=== PATIENT | female | born 1930 | race Caucasian/White ===

== ENCOUNTER → 2016-11-27 | Outpatient (CLI) | payer OTHER | LOC: RAD 13:29 | DX: Z12.31 Encounter for screening mammogram for malignant neoplasm of breast (principal) ==

== ENCOUNTER → 2017-12-11 | Outpatient (CLI) | payer OTHER | LOC: RAD 00:27 | DX: Z12.31 Encounter for screening mammogram for malignant neoplasm of breast (principal) ==

== ENCOUNTER → 2018-12-16 | Outpatient (CLI) | payer OTHER | LOC: RAD 13:24 | DX: Z12.31 Encounter for screening mammogram for malignant neoplasm of breast (principal) ==

== ENCOUNTER → 2018-12-18 | Outpatient (CLI) | payer OTHER | LOC: RAD 10:26 | DX: N63.21 Unspecified lump in the left breast, upper outer quadrant (principal); N65.1 Disproportion of reconstructed breast; R92.2 Inconclusive mammogram ==

== ENCOUNTER → 2018-12-26 | Outpatient (CLI) | payer OTHER ==
--- NOTE | 2018-12-30 12:06 | PATH ---
[facility] [place] [address] PATHOLOGY RPT PROCEDURE Name: MARI GIL Room #: REG LANDRY Brooke.#: [id number] ������������������ Admission: 12/26/18 ������������������ Date of : 30 Discharge: Report #: [id number] Path Case #: [id number] [facility] Accession Number: [id number] . 01 Material submitted: . breast - LEFT BREAST MASS, 1:00. Modifiers: left, 1:00 . 01 Clinical history: . Left breast mass . 02 Diagnosis: Breast, left breast mass 1:00 3 cm, needle core biopsy: - INVASIVE MODERATELY DIFFERENTIATED DUCTAL ADENOCARCINOMA, LUIS FERNANDO GRADE II MEASURING 0.9 CM IN CONTIGUOUS LENGTH IN A SINGLE CORE. - EXTENSIVE DUCTAL CARCINOMA IN SITU, INTERMEDIATE NUCLEAR GRADE AND CRIBRIFORM TYPE. (IUV:aquiles; 12/29/2018) MBR/12/29/2018 . 02 Comment: Specimen type: Needle core biopsy Tumor site: Left breast mass 1:00, 3 cm from nipple Tumor quantitation: 0.9 cm Histologic type: Invasive ductal carcinoma Histologic grade: Morrow grade II Tubules, nuclei and mitoses: 3, 2 and 1 respectively LVSI: Not identified Microcalcifications: Not identified Markers: ER, [place], Ki67 and HER2/tamir Block: A3 . Fraternity Adviser slides are co-reviewed by Dr. Susan Wolff who concurs with my diagnosis. . Findings of this case are telephoned to Carmen in our breast center at 10:50 a.m. on 12/29/18. . (IUV:insurance agency owner; 12/29/2018) . 02 Electronically signed: . Tiffany Hughes MD, Pathologist NPI- [id number] . 01 Gross description: . Received in formalin labeled "Mari Gil, left breast 1:00 3 cm," are multiple needle cores of yellow-smith fibrofatty tissue measuring 3.3 x 3.4 x 0.6 cm in aggregate dimensions. The tissue [place] [address] PATHOLOGY RPT PROCEDURE Name: MARI GIL Room #: REG CL Juma#: [id number] ������������������ Admission: 12/26/18 ������������������ Date of : 30 Discharge: Report #: [id number] Path Case #: [id number] in cassette A1 through A3. The cold ischemic time is less than 1 minute. The total formalin fixation time is 9 hours and 40 minutes. (TSD; 12/26/2018) TOB/TOB . 02 Pathologist provided ICD-10: C50.912 . 02 CPT . 892680 Specimen Comment: A courtesy copy of this report has been sent to Specimen Comment: [phone], . Specimen Comment: Report sent to / DR HUMPHREYS Performed at: [address], [place] [id number] MD Malcolm Paiz MD Phone: [phone] Performed at: [address] [id number] MD Tiffany Hughes MD Phone: [phone]
== END | disposition home or self-care (01) ==
LOC: ULTRA 07:40
DX: C50.912 Malignant neoplasm of unspecified site of left female breast (principal)